=== PATIENT | female | born 1960 | race Caucasian/White ===

== ENCOUNTER → 2024-12-26 07:01 | Outpatient (REF) | payer OTHER, SELFPAY | LOC: HWWDC 07:01 | PROVIDERS: ATTENDING PHYSICIAN Physician Assistant Medical | DX: Z00.00 Encounter for general adult medical examination without abnormal findings (principal); Z12.31 Encounter for screening mammogram for malignant neoplasm of breast | CPT/HCPCS: 77063; 77067 ==